=== PATIENT | female | born 1955 | race Caucasian/White ===

== ENCOUNTER 2020-02-06 09:31 | Day surgery (SDC) | payer MEDICARE, OTHER ==
[~2020-02-06] VITALS: Ht 147.3 cm; Wt 56.3 kg
[~2020-02-06 09:31] MED LIST: Adult Low Dose81 MG PO; CALACE667G; CONESTTC VAG; ERGO400; FLONASE ALLERG9.9 ML; Multiple Vitam1 EAC1 PO
--- NOTE | 2020-02-06 11:01 | NUR ---
02/06/20 1101 Cadence De La Cruz SIMETHICONE USED DURING PROCEDURE.
== END 2020-02-06 11:29 | disposition home or self-care (01) ==
LOC: ORSCSDS 09:31
PROVIDERS: Internal Medicine Gastroenterology
PROC: 0DJD8ZZ Inspection of Lower Intestinal Tract, Via Natural or Artificial Opening Endoscopic (ICD-10-PCS; principal; 2020-02-06 11:00)
DX: Z12.11 Encounter for screening for malignant neoplasm of colon (principal); Z86.010 Personal history of colon polyps; K64.8 Other hemorrhoids; K57.30 Diverticulosis of large intestine without perforation or abscess without bleeding; Z79.899 Other long term (current) drug therapy
CPT/HCPCS: J2704; J7120

== ENCOUNTER → 2022-02-19 | Outpatient (CLI) | payer MEDICARE, OTHER ==
[2022-02-20 10:33] LABS: Candida species (DNA Probe) Negative (NEGATIVE); G. vaginalis (DNA Probe) Negative (NEGATIVE); T. vaginalis (DNA Probe) Negative (NEGATIVE)
== END ==
LOC: LAB 16:27 → LAB SHORT 16:27
PROVIDERS: Family Medicine
DX: B37.31 Acute candidiasis of vulva and vagina (principal)
CPT/HCPCS: 87480; 87510; 87660

== ENCOUNTER → 2022-07-31 | Outpatient (CLI) | payer MEDICARE, OTHER | LOC: LAB 06:00 → LAB SHORT 06:00 | DX: L29.0 Pruritus ani (principal) | CPT/HCPCS: 87177; 87209 ==